=== PATIENT | female | born 1985 | race Caucasian/White ===

== ENCOUNTER 2019-01-16 15:50 | Inpatient (IN) ==
[2019-01-16] MEDS ORDERED: IPRATROPIUM/ALBUTEROL SULFATE 3 ML NEB NEB ONE (16:18)
[2019-01-16] MEDS ORDERED: methylPREDNISolone 125 MG/2 ML VIAL IVP ONE (16:18)
[2019-01-16] MEDS ORDERED: Sodium Chloride 0.9% 1,000 ML PRIMARY IV ONE (16:18)
[2019-01-16 16:25] LABS: BASOPHILS # (AUTO) 0.06 10*3/UL; BASOPHILS % (AUTO) 1.2 % (0-1); EOSINOPHILS # (AUTO) 0.01 10*3/UL; EOSINOPHILS % (AUTO) 0.2 % (0-8); Hematocrit [HCT] 50.2 % (37.0-47.0); LYMPHOCYTES # (AUTO) 1.92 10*3/uL; MEAN CORPUSCULAR HEMOGLOBIN 30.2 PG (27-31); MEAN CORPUSCULAR HGB CONC 33.9 g/dL (33-37); MEAN CORPUSCULAR VOLUME 89.3 FL (81-99); MEAN PLATELET VOLUME 9.8 FL (7.4-12.2); MONOCYTES # (AUTO) 0.78 10*3/UL (0.3-0.8); MONOCYTES % (AUTO) 15.6 % (5-15); NEUTROPHILS # (AUTO) 2.21 10*3/UL; NEUTROPHILS % (AUTO) 44.1 % (50-80); RED BLOOD COUNT 5.62 10^6/uL (4.20-5.40)
[2019-01-16 16:32] LABS: BLOOD UREA NITROGEN 14 mg/dL (7-22); SERUM ALBUMIN 4.6 g/dL (3.5-4.8)
[2019-01-16 16:34] LABS: PLATELET MORPHOLOGY COMMENT NORMAL MORPHOLOGY (NORM); RBC MORPHOLOGY COMMENT NORMAL MORPHOLOGY (NORM); WBC MORPHOLOGY COMMENT NORMAL MORPHOLOGY (NORM)
[2019-01-16] MEDS ORDERED: LEVALBUTEROL HCL 1.25 MG/3 ML NEB ONE (17:58)
[2019-01-16 18:03] LABS: VENOUS PH 7.35 (7.32-7.42)
--- NOTE | 2019-01-16 18:55 | PDOC ---
General Adult HPI - General Chief Complaint: Respiratory Complaint Stated Complaint: resp distress, hypoxia Date Seen by Provider: 01/16/19 Time Seen by Provider: 16:05 Source: POSITIVE: Patient, RN/MD Exam Limitations: POSITIVE: No limitations Nurse's Notes Reviewed & Considered: Yes - History of Present Illness Initial Comment: The patient is a 33-year-old female. Patient arrives from the medical office building by ambulance. Patient complains of a 4 day history of cough and shortness of breath. Some nasal congestion. Patient reports that she has had a "dry cough". At the clinic she was noted to be hypoxic. A chest x-ray was done at the clinic which was normal. Patient states that she has a history of asthma and she has an albuterol inhaler at home which she states she uses "about twice a day ". She's also been on prednisone in the past. She smokes a pack of cigarettes per day. History of diabetes for which she takes metformin and Jardiance. She is on lamotrigine for headaches. She also takes BuSpar, Nexium, Remeron and lisinopril. No fevers or chills. No chest pain. No GI, or neurologic symptoms. Have you received a tetanus shot in the past 10 years?: Yes Body Location Affected: REPORTS: Chest (Cough and dyspnea) Timing: REPORTS: Gradual, Getting Worse Duration: >24 hours (4 days) Severity: Moderate Quality: REPORTS: Other (Patient denies any pain anywhere) Context: REPORTS: Activity (Dyspnea with exertion), Coughing (Nonproductive) Modifying Factors: improves with: Coughing Similar Symptoms Previously: Yes (treated last month for "a viral URI ") Recent Care Received: REPORTS: Recently Seen, Treated by MD Any Prior Injuries Related to Current Complaint?: No - Patient Home Medications Home Medications: Home Medications esomeprazole magnesium 40 mg capsule,delayed release 40 mg PO BID #60 cap 09/12/18 lisinopril 5 mg tablet 5 mg PO QDAY #30 tab 10/27/18 empagliflozin 25 mg tablet 25 mg PO QAM #90 tab 11/15/18 buspirone 15 mg tablet 15 mg PO TID #90 tab 11/21/18 lamotrigine 100 mg tablet 100 mg PO QDAY #30 tab 11/21/18 mirtazapine 30 mg tablet 30 mg PO QHS #30 tab 11/21/18 risperidone 4 mg tablet 4 mg PO BID #60 tab 11/21/18 albuterol sulfate HFA 90 mcg/actuation aerosol inhaler 2 puff INH Q4-6H PRN #1 device 12/22/18 benzonatate 200 mg capsule 200 mg PO TID PRN #30 cap 12/22/18 vaogmevoodunoyw-fhdbmkrztdgbpgf-OY 2 mg-30 mg-10 mg/5 mL syrup 10 ml PO Q4-6H PRN #118 ml 12/22/18 metformin 500 mg tablet See Rx Instructions .ROUTE .COMPLEX #120 tablet 12/22/18 - Patient Allergies Allergies/Adverse Reactions: Allergies Allergy/AdvReac Type Severity Reaction Status Date / Time No Known Allergies Allergy Verified 01/16/19 16:32 Past Medical History - heen HEENT History: Denies History Cardiovascular History: Hypertension Respiratory History: Denies History Gastrointestinal History: Denies History Genitourinary History: Denies History Endocrine History: Type 2 Diabetes (oral) Musculoskeletal History: Denies History Prosthesis or Implant: No Neurological History: Denies History Blood Disorders: Denies History Psychiatric History: Bi Polar Disorder Female Reproductive History: Denies History LMP: 12/23/18 Obstetrical History: Denies History Cancer History: Denies History In Past Year Been Physically Harmed or Verbally Threatened: No History of MDRO: No Tobacco Use: Current Every Day Smoker In the Past 12 Months, Have Used or Abuse Any Substance: None Previous Surgical History: Yes Type / Date of Surgery: rt rotator cuff, kidney stones Anesthesia Reactions: No Malignant Hyperthermia: No Family History of Malignant Hyperthermia: No Significant Family History: No pertinent family hx Past Medical History Reviewed: Reviewed - No Changes ROS - Limitations ROS Limitations: No Limitations Constitution: REPORTS: Denies Symptoms Cardiovascular: REPORTS: Denies Cardiac Symptoms Respiratory: REPORTS: Cough Non Productive, Shortness Of Breath Neurological: REPORTS: Denies Neuro Symptoms Gastrointestinal: REPORTS: Denies GI Symptoms Endocrine: REPORTS: Denies Symptoms Musculoskeletal: REPORTS: Denies MS Symptoms Genitourinary: REPORTS: Denies Symptoms Eyes: REPORTS: Denies Symptoms ENT: REPORTS: Denies Symptoms Skin: REPORTS: Denies Skin Symptoms Lympathic: REPORTS: Denies Lympathic Symptoms Immunologic: POSITIVE: Denies Symptoms Psychiatric: POSITIVE: Denies Psych Symptoms General Adult Exam - General Appearance General Appearance: POSITIVE: Alert, Cooperative, No Acute Distress, No Evidence of Trauma - HEENT HEENT: POSITIVE: Head Inspection Nml, Eyes Inspection Nml, Ears Inspection Nml, Oral/Dental Inspect. Nml, Pharynx Inspect. Nml, PERRL, EOMI. NEGATIVE: Nose Inspection Nml (Mild congestion) - Pupils Pupil Size: 3 mm: Bilateral (PERRLA) - Neck Neck: POSITIVE: Normal Inspection, Thyroid Normal - Respiratory Respiratory: POSITIVE: Wheezes (Diffuse wheezing). NEGATIVE: Breath Sounds Normal - Cardiovascular Cardiovascular: POSITIVE: Regular Rate & Rhythm, No Murmur, No Gallop, PMI Normal Peripheral Pulses: Radial (R): 2+, Radial (L): 2+ - Abdomen Abdomen: Soft: (All Quadrants), Normal Bowel Sounds: (All Quadrants), Denies Tenderness: (All Quadrants), No Splenomegaly: (All Quadrants), No Hepatomegaly: (All Quadrants), No Guarding: (All Quadrants), No Rebound: (All Quadrants), No Palpable Pulse: (All Quadrants), No Palpabale Mass: (All Quadrants), No Distention: (All Quadrants), No Rigidity: (All Quadrants) - Back Back: POSITIVE: Normal Inspection - Skin Skin: POSITIVE: Normal Color, Warm, Dry, No Rash - Extremities Extremity: Non-Tender: (All Extremities), Normal ROM: (All Extremities), Normal Inspection: (All Extremities) - Neurological / Psychological Neurological: POSITIVE: Affect Apporpriate, Oriented X3, project development coordinator Normal As Tested, Motor Normal, Sensation Normal General Adult Progress - Results Reviewed by me Xrays/CTs/US Reviewed by me: Yes Discussed with Radiologist: Yes Radiology Findings: Chest x-ray normal Lab Results Reviewed by Me: Yes (respiratory biofire negative ) Lab Results:: Laboratory Results 01/16/19 01/16/19 01/16/19 15:55 15:55 15:55 WBC 5.01 RBC 5.62 H Hgb 17.0 H Hct 50.2 H MCV 89.3 MCH 30.2 MCHC 33.9 RDW Std Deviation 50.1 H RDW Coeff of Nelson 15.3 H Plt Count 193 MPV 9.8 Immature Gran % (Auto) 0.6 Neut % (Auto) 44.1 L Lymph % (Auto) 38.3 [place] % (Auto) 15.6 H Eos % (Auto) 0.2 Baso % (Auto) 1.2 H Immature Gran # (Auto) 0.03 Neut # (Auto) 2.21 Lymph # (Auto) 1.92 [place] # (Auto) 0.78 Eos # (Auto) 0.01 Baso # (Auto) 0.06 WBC Morphology Comment Normal morphology Plt Morphology Comment Normal morphology RBC Morph Comment Normal morphology D-Dimer VBG pH VBG pCO2 VBG HCO3 VBG Base Excess Sodium Potassium Chloride Carbon Dioxide Anion Gap BUN Creatinine Estimated GFR BUN/Creatinine Ratio Glucose Calculated Osmolality Calcium Total Bilirubin AST ALT Alkaline Phosphatase Troponin I < 0.012 NT-Pro-B Natriuret Pep < 11.1 Total Protein Albumin Globulin Albumin/Globulin Ratio Group A Strep Screen 01/16/19 01/16/19 01/16/19 15:55 15:55 16:00 WBC RBC Hgb Hct MCV MCH MCHC RDW Std Deviation RDW Coeff of Nelson Plt Count MPV Immature Gran % (Auto) Neut % (Auto) Lymph % (Auto) [place] % (Auto) Eos % (Auto) Baso % (Auto) Immature Gran # (Auto) Neut # (Auto) Lymph # (Auto) [place] # (Auto) Eos # (Auto) Baso # (Auto) WBC Morphology Comment Plt Morphology Comment RBC Morph Comment D-Dimer 0.19 VBG pH 7.35 VBG pCO2 49 VBG HCO3 27 H VBG Base Excess 1 Sodium 132 L Potassium 4.2 Chloride 96 L Carbon Dioxide 25 Anion Gap 11 BUN 14 Creatinine 1.0 Estimated GFR > 60 BUN/Creatinine Ratio 14.00 Glucose 146 H Calculated Osmolality 277.0 Calcium 9.4 Total Bilirubin 0.7 AST 31 ALT 43 Alkaline Phosphatase 84 Troponin I NT-Pro-B Natriuret Pep Total Protein 7.5 Albumin 4.6 Globulin 3.0 Albumin/Globulin Ratio 1.50 Group A Strep Screen 01/16/19 16:50 WBC RBC Hgb Hct MCV MCH MCHC RDW Std Deviation RDW Coeff of Nelson Plt Count MPV Immature Gran % (Auto) Neut % (Auto) Lymph % (Auto) [place] % (Auto) Eos % (Auto) Baso % (Auto) Immature Gran # (Auto) Neut # (Auto) Lymph # (Auto) [place] # (Auto) Eos # (Auto) Baso # (Auto) WBC Morphology Comment Plt Morphology Comment RBC Morph Comment D-Dimer VBG pH VBG pCO2 VBG HCO3 VBG Base Excess Sodium Potassium Chloride Carbon Dioxide Anion Gap BUN Creatinine Estimated GFR BUN/Creatinine Ratio Glucose Calculated Osmolality Calcium Total Bilirubin AST ALT Alkaline Phosphatase Troponin I NT-Pro-B Natriuret Pep Total Protein Albumin Globulin Albumin/Globulin Ratio Group A Strep Screen Negative CBC and BMP: 01/16/19 15:55 01/16/19 15:55 EKG Interpreted/Reviewed By Me:: Yes (electrocardiogram normal except for sinus tachycardia of 10 4/m) EKG Interpretation:: POSITIVE: Normal Sinus Rhythm, Normal Intervals, Normal [place], Normal QRS, Normal ST/T, Abnormal EKG (Sinus tachycardia). NEGATIVE: Normal Rate (Sinus tachycardia) - Patient's Progress Pain Medication Addressed: POSITIVE: Not Applicable School/Work Release Addressed: POSITIVE: Not Applicable Re-Examine Time: 18:40 Re-Examine Comment: Upon arrival patient's oxygen saturation was around 73% on room air; on 6 L it was 92%, nasal cannula. Patient given a DuoNeb nebulizer treatment without much improvement in her wheezing or her hypoxia. Patient then given a Xopenex treatment by nebulization, again without much improvement. Patient given 125 mg of Solu-Medrol IV. Patient advised that I am concerned about her hypoxia and I recommended admission for further evaluation and treatment. Case discussed with hospitalist and patient admitted for further evaluation and treatment. Status: POSITIVE: Unchanged, Re-Examined Antibiotics Given: No - Consult Consult (If Yes, Name of Consulting MD & Time Called): Yes (Dr. Sharif, hospitalist, [id number]) Consulting MD will see pt:: POSITIVE: [facility] [place] Admit Counseled: POSITIVE: Patient, RE: Lab Results, RE: Radiology Results, RE: DX, RE: Need for F/U Patient Care Time - Estimated PCT Patient Care Time (In Minutes): 45 Vital Signs - Recent Vital Signs Vital Signs: Vital Signs (Last 8 hours) Temp Pulse Pulse Resp BP Pulse Ox 01/16/19 18:29 108 H 18 90 01/16/19 18:21 104 H 20 91 01/16/19 18:15 113 H 18 87 01/16/19 18:14 101 H 20 90 01/16/19 16:27 105 H 16 96 01/16/19 16:26 101 H 16 94 01/16/19 16:00 104 H 20 89 01/16/19 15:50 97.2 F 109 H 20 118/83 84 - VS Reviewed Vital Signs Reviewed: Yes Discharge Clinical Impression: Asthma, Hypoxia, Diabetes mellitus, Tobacco abuse Discharge Disposition: Admit to Inpatient Condition: Stable Follow Up With: RUIZ JJ [Primary Care Provider] - Date Decision to Admit to Inpatient: 01/16/19 Time Decision to Admit to Inpatient: 18:50
[2019-01-16] MEDS ORDERED: ALBUTEROL SULFATE 2.5 MG/3 ML NEB PRN (19:27)
[2019-01-16] MEDS ORDERED: LIDOCAINE W/ SODIUM BICARB 0.5 ML SYR SUBD PRN (19:27)
--- NOTE | 2019-01-16 19:46 | PDOC ---
HPI - History of Present Illness Date of Service: 01/16/19 Time of Service: 20:00 Chief Complaint: Cough, shortness of breath, nasal congestion for 4 days History of Present Illness: This is a 33 years old female with medical history significant for history of hypertension, diabetes, borderline asthma, GERD, bipolar disorder who presented to clinic with history of dry cough, shortness of breath, headache and nasal congestion being going on for 4 days, she said she is on albuterol inhalers using it twice a day. Because of her symptom she went to the the clinic she was found to be hypoxic in the 70s and she needed 6 L of oxygen she was givin breathing treatment and steroid and was admitted for asthma exacerbation. Currently she said she feels somewhat better as she is breathing easier compared to when she came in. No chest pain. No fever. No phlegm production. Past Medical History Medical History: 1. History of bipolar disorder since 2003. 2. History of diabetes diagnosed September 2018 on oral hypoglycemic agent. 3. GERD. 4. Borderline asthma. 5. History of kidney stones. 6. History of hypertension Surgical History: 1. History of right rotator cuff surgery. 2. History of kidney stone removal Family History: Reviewed an Not Pertinent Past Social History: She smokes about a pack a day, does not drink nor drugs. Tobacco Use: Current Every Day Smoker Do you dip or chew tobacco: No In the Past 12 Months, Have Used or Abuse Any of the Following Substance: None Medication / Allergies Home Medications: Home Medications Medication Instructions Recorded Confirmed Type esomeprazole magnesium 40 mg 40 mg PO BID #60 cap 09/12/18 01/16/19 Rx capsule,delayed release lisinopril 5 mg tablet 5 mg PO QDAY #30 tab 10/27/18 01/16/19 Rx empagliflozin 10 mg tablet 10 mg Tablet#8 Samples 11/15/18 01/16/19 Sample empagliflozin 25 mg tablet 25 mg PO QAM #90 tab 11/15/18 01/16/19 Rx buspirone 15 mg tablet 15 mg PO TID #90 tab 11/21/18 01/16/19 Rx lamotrigine 100 mg tablet 100 mg PO QDAY #30 tab 11/21/18 01/16/19 Rx mirtazapine 30 mg tablet 30 mg PO QHS #30 tab 11/21/18 01/16/19 Rx risperidone 4 mg tablet 4 mg PO BID #60 tab 11/21/18 01/16/19 Rx albuterol sulfate HFA 90 2 puff INH Q4-6H PRN #1 device 12/22/18 01/16/19 Rx mcg/actuation aerosol inhaler benzonatate 200 mg capsule 200 mg PO TID PRN #30 cap 12/22/18 01/16/19 Rx ivbufgvdwmlssvt-czaeuhchshomsfm-UK 10 ml PO Q4-6H PRN #118 ml 12/22/18 01/16/19 Rx 2 mg-30 mg-10 mg/5 mL syrup metformin 500 mg tablet See Rx Instructions .ROUTE 12/22/18 01/16/19 Rx .COMPLEX #120 tablet Allergies/Adverse Reactions: Allergies Allergy/AdvReac Type Severity Reaction Status Date / Time No Known Allergies Allergy Verified 01/16/19 16:32 Review of Systems - Review of Systems All Systems: Reviewed & No Additional Complaints Except as Stated Exam - Vitals Vital Signs: Vital Signs Temperature 99.3 F Temperature Source Oral Pulse Rate [Pulse Oximeter 108 Right] Pulse Rate 113 Respiratory Rate 24 Blood Pressure [Left Arm] 133/86 Pulse Ox 92 Oxygen Flow Rate 6 Oxygen Delivery Method Nasal Cannula Height 5 ft 5 in Weight 212 lb 6 oz - General General Appearance: No Acute Distress, Cooperative, Obese - Head Head Exam: Normal Inspection - Eye Eye Exam: POSITIVE: Normal Appearance - ENT ENT Exam: POSITIVE: Normal Exam - Neck Neck Exam: Normal Inspection - Respiratory Additional Respiratory Exam Details: Decreased air entry with the bilateral expiratory wheezes. - Cardiovascular Cardiovascular Exam: POSITIVE: RRR - GI/Abdominal GI/Abdominal Exam: POSITIVE: Normal Bowel Sounds, Non Tender, Non Distended, Soft, No Organomegaly - Rectal Rectal Exam: POSITIVE: Deferred - External Exam: POSITIVE: Deferred - Extremities Extremities Exam: POSITIVE: Normal Inspection - Back Back Exam: POSITIVE: Normal Inspection - Neurological Neurological Exam: POSITIVE: Alert, Oriented x 3, CN II-XII Intact, No Facial Droop, Speech Intact / Clear, Moves All Extremities Equally - Psychiatric Psychiatric Exam: POSITIVE: Normal Affect Results - Labs CBC and BMP: 01/16/19 15:55 01/16/19 15:55 - Imaging Status: Report Reviewed by Me (Chest x-ray Normal chest x-ray. Heart size is at the upper limits of normal.) Assessment and Plan - Patient Problems (1) Asthma exacerbation Current Visit: Yes Status: Acute Comment: I think will put her on bronchodilator, steroid and oxygen. We'll see how she feels and what's her sats tomorrow and have examined then will decide if she to stay longer in the hospital. Code(s): J45.901 - Unspecified asthma with (acute) exacerbation (2) Diabetes mellitus Current Visit: Yes Status: Acute Comment: Continue previous medication and will put her also on sliding scale insulin. Code(s): E11.9 - Type 2 diabetes mellitus without complications (3) Benign essential hypertension Current Visit: No Status: Chronic Comment: Same med Code(s): I10 - Essential (primary) hypertension (4) GERD (gastroesophageal reflux disease) Current Visit: No Status: Chronic Comment: Same med Code(s): K21.9 - Gastro-esophageal reflux disease without esophagitis (5) Bipolar disorder Current Visit: No Status: Chronic Comment: Same medications Code(s): F31.9 - Bipolar disorder, unspecified Qualifiers: Active/Remission status: remission status unspecified Qualified Code(s): F3 1.9 - Bipolar disorder, unspecified
[2019-01-16] MEDS ORDERED: ACETAMINOPHEN 325 MG TABLET PO PRN (19:56)
[2019-01-16] MEDS ORDERED: RISPERIDONE 4 MG PO SCH (21:00)
[2019-01-16] MEDS ORDERED: Mirtazapine Tab 30 MG TAB PO SCH (21:00)
[2019-01-16] MEDS: Esomeprazole DR 20mg Capsule PO SCH (21:04)
[2019-01-16] MEDS: metFORMIN 500 MG TABLET PO SCH (21:05)
[2019-01-16] MEDS: RISPERIDONE 1 MG PO SCH (21:06)
[2019-01-16] MEDS: busPIRone HCL 5 MG TABLET PO SCH (21:09)
[2019-01-16] MEDS: Sodium Chloride 0.9% 1,000 ML PRIMARY IV SCH (21:11)
[2019-01-16] MEDS: IPRATROPIUM/ALBUTEROL SULFATE 3 ML NEB NEB SCH (21:20)
[2019-01-16] MEDS: Insulin Lispro Flexpen 300 UNIT/3 ML INSULN.PEN SUBCUT SCH (21:42)
[2019-01-16] MEDS: GUAIFENESIN/DM 5 ML UD CUP PO PRN (22:27)
[2019-01-16] MEDS: methylPREDNISolone 125 MG/2 ML VIAL IVP SCH (22:28)
[2019-01-17] MEDS: NICOTINE 21 MG /DAY PATCH TRANSDERM SCH ×2 (00:48→20:00)
[2019-01-17] MEDS: GUAIFENESIN/DM 5 ML UD CUP PO PRN ×3 (03:15→15:23)
[2019-01-17] MEDS: methylPREDNISolone 125 MG/2 ML VIAL IVP SCH ×3 (04:29→18:59)
[2019-01-17] MEDS: Insulin Lispro Flexpen 300 UNIT/3 ML INSULN.PEN SUBCUT SCH ×4 (07:01→19:59)
[2019-01-17] MEDS: Sodium Chloride 0.9% 1,000 ML PRIMARY IV SCH (07:33)
[2019-01-17] MEDS ORDERED: NICOTINE 21 MG /DAY PATCH TRANSDERM SCH (09:00)
[2019-01-17] MEDS ORDERED: EMPAGLIFLOZIN 25 MG PO SCH (09:00)
[2019-01-17] MEDS: busPIRone HCL 5 MG TABLET PO SCH ×3 (09:23→19:59)
[2019-01-17] MEDS: buPROPion XL Tab 150 MG TAB PO SCH (09:24)
[2019-01-17] MEDS: RISPERIDONE 1 MG PO SCH ×2 (09:25→19:59)
[2019-01-17] MEDS: metFORMIN 500 MG TABLET PO SCH ×2 (09:25→19:59)
[2019-01-17] MEDS: Esomeprazole DR 20mg Capsule PO SCH ×2 (09:25→19:59)
[2019-01-17] MEDS: LISINOPRIL 5 MG TABLET PO SCH (09:25)
[2019-01-17] MEDS: lamoTRIgine 100 MG TABLET PO SCH (09:25)
[2019-01-17] MEDS: IPRATROPIUM/ALBUTEROL SULFATE 3 ML NEB NEB SCH ×4 (10:00→18:32)
--- NOTE | 2019-01-17 10:20 | PDOC(PROG) ---
Date of Service: 01/17/19 Time of Service: 10:30 Interval History: Subjective Still have the cough but overall she is better compared to when she came in. Breathing is better. Objective : Data - Labs CBC and BMP: 01/16/19 15:55 01/16/19 15:55 Objective : Exam - General General Appearance: No Acute Distress, Cooperative, Obese - Head Head Exam: Normal Inspection - Eye Eye Exam: Normal Appearance - ENT ENT Exam: Normal Exam - Neck Neck Exam: Normal Inspection - Respiratory Additional Respiratory Exam Details: Decreased air entry, no wheezing today compared to yesterday. But air entry is decreased - Cardiovascular Cardiovascular Exam: RRR - GI/Abdominal GI/Abdominal Exam: Normal Bowel Sounds, Non Tender, Non Distended, Soft, No Organomegaly - Rectal Rectal Exam: Deferred - External Exam: Deferred Exam: Deferred - Extremities Extremities Exam: Normal Inspection - Back Back Exam: Normal Inspection - Neurological Neurological Exam: Alert, Oriented x 3, CN II-XII Intact, No Facial Droop, Speech Intact / Clear, Moves All Extremities Equally - Psychiatric Psychiatric Exam: Normal Affect - Integumentary Integumentary Exam: Normal Color Assessment and Plan - Patient Problems (1) Asthma exacerbation Current Visit: Yes Status: Acute Comment: I think she is improving however she is still requiring 3 L of oxygen at rest. I think we'll start cutting back on her steroid will DC her IV fluids and see how things looks tomorrow and then may be home tomorrow. Code(s): J45.901 - Unspecified asthma with (acute) exacerbation (2) Diabetes mellitus Current Visit: Yes Status: Acute Comment: Continue same medication and sliding scale insulin coverage. Code(s): E11.9 - Type 2 diabetes mellitus without complications (3) Benign essential hypertension Current Visit: No Status: Chronic Comment: Same med Code(s): I10 - Essential (primary) hypertension (4) GERD (gastroesophageal reflux disease) Current Visit: No Status: Chronic Comment: Same med Code(s): K21.9 - Gastro-esophageal reflux disease without esophagitis (5) Bipolar disorder Current Visit: No Status: Chronic Comment: Same medications Code(s): F31.9 - Bipolar disorder, unspecified Qualifiers: Active/Remission status: remission status unspecified Qualified Code(s): F31.9 - Bipolar disorder, unspecified
[2019-01-18] MEDS: GUAIFENESIN/DM 5 ML UD CUP PO PRN ×2 (01:16→07:13)
[2019-01-18] MEDS: methylPREDNISolone 125 MG/2 ML VIAL IVP SCH ×2 (03:15→11:13)
--- NOTE | 2019-01-18 03:59 | EKG ---
[address] [address] Measurements Intervals [place] Rate: 64 P: [place]: 0 QRS: 62 QRSD: 102 T: 48 QT: 399 QTc: 409 Interpretive Statements [facility] [facility] CHANGES OF EARLY REPOLARIZATION ABNORMAL RHYTHM ECG Compared to ECG 01/16/2019 15:57:49 Sinus tachycardia no longer present Electronically Signed On 01-18-19 13:47:30 MDT by Masoud Francis [email or web address]
--- NOTE | 2019-01-18 06:05 | EKG ---
[address] [address] Measurements Intervals [place] Rate: 104 P: 63 DE: 157 QRS: 61 QRSD: 87 T: 39 QT: 330 QTc: 390 Interpretive Statements SINUS TACHYCARDIA ABNORMAL RHYTHM ECG No previous ECG available for comparison Electronically Signed On 01-18-19 13:38:48 MDT by Masoud Francis [email or web address]
[2019-01-18] MEDS: Insulin Lispro Flexpen 300 UNIT/3 ML INSULN.PEN SUBCUT SCH ×3 (07:13→12:36)
[2019-01-18 07:30] VITALS: BP 112/74; TEMP 97.5
[2019-01-18] MEDS: IPRATROPIUM/ALBUTEROL SULFATE 3 ML NEB NEB SCH ×2 (07:45→11:34)
[2019-01-18 07:49] VITALS: O2SAT 100
[2019-01-18] MEDS: LISINOPRIL 5 MG TABLET PO SCH (09:04)
[2019-01-18] MEDS: lamoTRIgine 100 MG TABLET PO SCH (09:04)
[2019-01-18] MEDS: Esomeprazole DR 20mg Capsule PO SCH (09:04)
[2019-01-18] MEDS: RISPERIDONE 1 MG PO SCH (09:04)
[2019-01-18] MEDS: busPIRone HCL 5 MG TABLET PO SCH (09:04)
[2019-01-18] MEDS: metFORMIN 500 MG TABLET PO SCH (09:04)
[2019-01-18] MEDS: buPROPion XL Tab 150 MG TAB PO SCH (09:05)
--- NOTE | 2019-01-18 11:20 | DCSUMMARY ---
Hospitalization Summary Admit Date: 01/16/2019 Discharge Date: 01/18/19 Hospital Course: Discharge diagnoses 1. Acute exacerbation of asthma 2. Diabetes 3. History of hypertension 4. History of GERD 5. History of bipolar disorder 6. History of kidney stone Hospital course This is a 33 years old female with medical history significant for history of hypertension, diabetes, borderline asthma according to her, bipolar disorder and GERD who presented to the clinic with a history of dry cough, shortness of breath, headache and nasal congestion being going on for 4 days. She's been using her albuterol inhalers about twice a day. Because of all the symptoms she came into the clinic she was found to be hypoxic with saturations in 70s and was sent to the ER. She did receive breathing treatment and was put on oxygen initially needed 6 L of oxygen and then she was admitted.. The patient when she came in she did have some wheezing. We continued with steroid, bronchodilator and oxygen. Gradually there is a decline in her oxygen need to 3 L. On the day of discharge she was feeling better there is no wheezing I can hear some decreased air entry. She still required to be on oxygen though so we did discharge her on oxygen and steroid in addition to the nebulizer treatment. She has diabetes and a blood sugar went higher with the steroids that she needs to be on sliding scale insulin. We did discharge her insulin sliding scale to cover what she is on steroid. She can continue with the rest of her medications. We did provide her with a glucometer meter as she did not have one. She follow-up with her primary. We did advise that she quit smoking. Discharge instruction Diet diabetic Activity as tolerated Medications Current Medication(s) Medication Instructions Recorded Confirmed Type esomeprazole magnesium 40 mg 40 mg PO BID #60 cap 09/12/18 01/16/19 Rx capsule,delayed release lisinopril 5 mg tablet 5 mg PO QDAY #30 tab 10/27/18 01/16/19 Rx empagliflozin 25 mg tablet 25 mg PO QAM #90 tab 11/15/18 01/16/19 Rx buspirone 15 mg tablet 15 mg PO TID #90 tab 11/21/18 01/16/19 Rx lamotrigine 100 mg tablet 100 mg PO QDAY #30 tab 11/21/18 01/16/19 Rx risperidone 4 mg tablet 4 mg PO BID #60 tab 11/21/18 01/16/19 Rx metformin 500 mg tablet See Rx Instructions .ROUTE 12/22/18 01/16/19 Rx .COMPLEX #120 tablet Bupropion HCl [Wellbutrin Xl] 1 tab PO DAILY 01/17/19 01/17/19 History Albuterol/Ipratrop Neb Soln 3 ml NEB RTQID #30 ampul.neb 01/18/19 Rx [Duoneb Neb Soln] Blood Sugar Diagnostic [Contour] 1 [facility] QID #30 strip 01/18/19 Rx Flutica/Salmet 500/50 Inhaler 14 puff INH BID #1 inhalerkit 01/18/19 Rx [Advair Diskus 500/50 Inhaler] Insulin Lispro Flexpen Inj 0 - 14 unit SUBCUT AC HS 01/18/19 Rx [HumaLOG Flexpen Inj] insuln.pen Lancets 1 [facility] QID #30 ea 01/18/19 Rx predniSONE Tab [Deltasone Tab] 40 mg PO DAILY #14 tab 01/18/19 Rx Follow-up with PCP as scheduled next week Condition at discharge was stable for discharge Exam - Vitals Vital Signs: Vital Signs Temperature 97.5 F Temperature Source Oral Pulse Rate [Pulse Oximeter 74 Right] Pulse Rate 59 Respiratory Rate 20 Blood Pressure [Left Arm] 112/74 Blood Pressure 112/76 Pulse Ox 100 Oxygen Flow Rate 2 Oxygen Delivery Method Nasal Cannula Height 5 ft 5 in Weight 213 lb 3.2 oz - General General Appearance: No Acute Distress, Cooperative, Obese - Head Head Exam: Normal Inspection - Eye Eye Exam: POSITIVE: Normal Appearance - ENT ENT Exam: POSITIVE: Normal Exam - Neck Neck Exam: Normal Inspection - Respiratory Additional Respiratory Exam Details: Decreased air entry otherwise clear - Cardiovascular Cardiovascular Exam: POSITIVE: RRR - GI/Abdominal GI/Abdominal Exam: POSITIVE: Normal Bowel Sounds, Non Tender, Non Distended, Soft, No Organomegaly - Rectal Rectal Exam: POSITIVE: Deferred - External Exam: POSITIVE: Deferred - Extremities Extremities Exam: POSITIVE: Normal Inspection - Back Back Exam: POSITIVE: Normal Inspection - Neurological Neurological Exam: POSITIVE: Alert, Oriented x 3, CN II-XII Intact, No Facial Droop, Speech Intact / Clear - Psychiatric Psychiatric Exam: POSITIVE: Normal Affect Patient Problems - Patient Problem List (1) Asthma exacerbation Status: Acute Code(s): J45.901 - Unspecified asthma with (acute) exacerbation Category: Medical (2) Diabetes mellitus Status: Acute Code(s): E11.9 - Type 2 diabetes mellitus without complications Category: Medical (3) Benign essential hypertension Status: Chronic Code(s): I10 - Essential (primary) hypertension Category: Medical (4) GERD (gastroesophageal reflux disease) Status: Chronic Code(s): K21.9 - Gastro-esophageal reflux disease without esophagitis Category: Medical (5) Bipolar disorder Status: Chronic Code(s): F31.9 - Bipolar disorder, unspecified Qualifiers: Active/Remission status: remission status unspecified Qualified Code(s): F31.9 - Bipolar disorder, unspecified Category: Medical
[2019-01-18 11:37] VITALS: RESP 18
== END 2019-01-18 13:56 | disposition home or self-care (01) | DRG 203 ==
LOC: ER 15:50 → MED/SURG 18:55
PROVIDERS: ADMIT Internal Medicine; ATTEND Internal Medicine